=== PATIENT | male | born 1990 | race Caucasian/White ===

== ENCOUNTER 2024-11-15 12:51 | Observation (INO) | payer OTHER ==
[2024-11-15] MEDS ORDERED: Sodium Chloride 0.9% 1000 ML 1,000 ML ONE (13:33)
[2024-11-15] MEDS: Sodium Chloride 0.9% 1000 ML 1,000 ML IV SCH ×2 (13:35→18:31)
--- NOTE | 2024-11-15 13:36 | XRAY ---
Indication: Status post fall with left head injury/laceration. Multiple contiguous axial images obtained through the head without contrast. Comparison: None Normal appearing brain parenchyma, ventricles, and bony calvarium. Visualized paranasal sinuses and mastoid air cells are clear. Impression: Normal CT head without contrast exam.
[2024-11-15 13:42] LABS: Absolute Neutrophil Ct (ANC) 5.58 x10^3/uL (1.78-5.38); BASOPHIL % 0.3 % (0.2-1.2); Basophil (Absolute #) 0.02 x10^3/uL (0.01-0.08); Eosinophil % 2.2 % (0.8-7.0); Eosinophil (Absolute #) 0.17 x10^3/uL (0.04-0.54); Hematocrit 43.2 % (40.1-51.0); Hemoglobin 15.3 g/dL (13.7-17.5); IMMATURE GRAN # 0.03 x10^3u/L (0.001-0.031); IMMATURE GRAN % 0.4 % (0.001-0.429); Lymphocyte (Absolute #) 1.47 x10^3/uL (1.32-3.57); Lymphocytes % 19.2 % (21.8-53.1); Mean Cell Volume 84.4 fL (79.0-92.2); Mean Corpuscular Hemoglobin 29.9 pg (25.7-32.2); Mean Corpuscular Hgb Concent. 35.4 g/dL (32.3-36.5); Mean Platelet Volume 11.1 fL (9.4-12.4); Monocytes % 5.2 % (5.3-12.2); NUCLEATED RBC # 0.02 x10^3u/L (0.00-0.012); NUCLEATED RBC % 0.3 % (0.00-0.2); Neutrophil % 72.7 % (34.0-67.9); Platelet Count 188 x10^3/uL (163-337); Red Blood Count 5.12 x10^6/uL (4.63-6.08); Red Cell Distribution Width 11.5 % (11.6-14.4); White Blood Count 7.7 x10^3/uL (4.23-9.07)
--- NOTE | 2024-11-15 13:44 | XRAY ---
Indication: Status post fall with left head injury/laceration. Multiple contiguous axial images obtained through cervical spine with cervical collar in situ. Sagittal and coronal reformatted images obtained. Comparison: Cervical radiograph same day. Again C5-C6 fusion with intact anterior hardware and intervertebral spacer. Cervical lordotic reversal presumed positional due to cervical collar. Right transverse process C1 demonstrates 1 cm well-circumscribed ossification felt to be developmental/normal variant. Otherwise normal appearing bones, dictation, and noncontrasted soft tissues appear lung apices clear. Impression: Cervical lordotic reversal favored to be positional. Stable C5-C6 fusion. Negative acute fracture/subluxation.
--- NOTE | 2024-11-15 13:49 | ERPHSYRPT ---
- History of Present Illness Time Seen by Provider: 11/15/24 12:55 Source: patient Exam Limitations: no limitations Patient Subjective Stated Complaint: Pt was in radiology having cervical xrays and when doing an extension of his neck he felt a tightness in his neck started getting tunnel vision tried to sit and had a syncopal episode causing a fall. Cervical xrays were for routine follow up from having cervical surgery pt reports "ACDF" on 07/05/24. When falling it is said he hit left side of head on a foot stool. The rapid response team reported blood sugar of 89. Triage Nursing Assessment: Pt brought to ED from radiology via wheelchair. Pt pale, diaphoretic, cool. Alert and oriented x3. Respirations easy/nonlabored. Approx 3cm laceration behind left ear. Complaints of left hip pain, no bruising/lacerations. Pt denies any numbness/tingling left lower extremity. Complains of some neck tightness. No obvious deformities. C-collar in place. Physician History: Patient is a 34-year-old male presents to the emergency department via wheelchair from radiology for evaluation post syncope. Patient was in radiology to obtain cervical x-rays. Patient had anterior cervical discectomy and fusion on 07/05/2024. After obtaining his radiological evaluation patient reportedly "passed out". Patient hit the floor. The left side of his head reportedly hit a footstool causing a 3 cm laceration behind his ear. Patient has poor recollection of the incident. Code rapid was called. Patient's blood glucose at that time was 89. Cervical collar placed while in the radiology department. Upon arrival to our ED patient was alert and oriented x 3. However he looked a little pale and dusky. Slightly diaphoretic. Otherwise in no distress. Patient complains of some left gluteal hip soreness. Patient able to stand up without any discomfort. Patient feels well at this time. No active pain. Patient voices no other complaints or concerns at this time. Portions of this note were created with voice recognition technology. There may be grammatical, spelling, punctuation or sound alike errors Timing/Duration: today Severity: moderate Modifying Factors: Improves With: nothing Associated Symptoms: denies symptoms Allergies/Adverse Reactions: No Known Drug Allergies Allergy (Unverified 11/15/24 12:53) Home Medications: Collagen/Biotin/Ascorbic Acid [Collagen 1500 Plus C Capsule] 1 tab PO DAILY 11/15/24 [History] Multivitamin [Flintstones with Extra C] 1 tab PO DAILY 11/15/24 [History] Hx Tetanus, Diphtheria Vaccination/Date Given: Yes Hx Influenza Vaccination/Date Given: Yes Travel Risk - International Travel Have you traveled outside of the country in past 3 weeks: No - Emerging Infectious Disease Are you exhibiting symptoms associated with any current EIDs: No - Review of Systems Constitutional: No Symptoms, No Fever, No Chills Eyes: No Symptoms Ears, Nose, & Throat: No Symptoms Respiratory: No Symptoms, No Cough, No Dyspnea Cardiac: No Symptoms, No Chest Pain, No Edema, No Syncope Abdominal/Gastrointestinal: No Symptoms, No Abdominal Pain, No Nausea, No Vomiting, No Diarrhea Genitourinary Symptoms: No Symptoms, No Dysuria Musculoskeletal: No Symptoms, No Back Pain, No Neck Pain Skin: No Symptoms, No Rash Neurological: No Symptoms, No Dizziness, No Focal Weakness, No Sensory Changes Psychological: No Symptoms Endocrine: No Symptoms Hematologic/Lymphatic: No Symptoms Immunological/Allergic: No Symptoms All Other Systems: Reviewed and Negative - Past Medical History Neurological History: No Pertinent History Cardiac History: No Pertinent History Respiratory History: Sleep Apnea Endocrine Medical History: No Pertinent History Musculoskeletal History: No Pertinent History - Past Surgical History Past Surgical History: Yes Musculoskeletal: Orthopedic Surgery Other Surgical History: left knee meniscus - Social History Smoking Status: Never smoker Exposure to second hand smoke: No Drug Use: none - Social Determinants of Health Will the patient participate in the screening: Declined to provide - Nursing Vital Signs Nursing Vital Signs: Initial Vital Signs Temperature 97.4 F 11/15/24 12:52 Pulse Rate 79 11/15/24 12:52 Respiratory Rate 16 11/15/24 12:52 Blood Pressure 122/68 11/15/24 12:52 O2 Sat by Pulse Oximetry 98 11/15/24 12:52 Pain Scale Pain Intensity 2 - Physical Exam General Appearance: no apparent distress, alert Eye Exam: PERRL/EOMI, eyes nml inspection Ears, Nose, Throat Exam: normal ENT inspection, TMs normal, pharynx normal, moist mucous membranes Neck Exam: normal inspection, non-tender, supple, full range of motion Respiratory Exam: normal breath sounds, lungs clear, No respiratory distress Cardiovascular Exam: regular rate/rhythm, normal heart sounds, normal peripheral pulses Gastrointestinal/Abdomen Exam: soft, normal bowel sounds, No tenderness, No mass Back Exam: normal inspection, normal range of motion, No CVA tenderness, No ve rtebral tenderness Extremity Exam: normal inspection, normal range of motion, pelvis stable Neurologic Exam: alert, oriented x 3, cooperative, normal mood/affect, nml cerebellar function, nml station & gait, sensation nml, No motor deficits Skin Exam: normal color, warm, dry, other (Superficial 3 cm laceration posterior aspect left ear), No rash Lymphatic Exam: No adenopathy SpO2 Interpretation: normal SpO2: 95 O2 Delivery: Room Air Procedures - Laceration/Wound Repair Left Head Time of Procedure: 14:20 Wound Location: Left (Laceration left posterior ear) Wound Length (cm): 3 Wound's Depth, Shape: superficial Wound Explored: clean Irrigated: Yes Hibiclens Prep: Yes Anesthesia: 1% Lidocaine Volume Anesthetic (ccs): 4 Wound Debrided: No debridement indicated Wound Repaired With: sutures Suture Size/Type: 5-0, ethilon Number of Sutures: 5 Layer Closure?: No Sterile Dressing Applied?: Yes Splint Applied?: No Sling Applied?: No Progress: 11/15/24 14:33 No intra or postprocedural complications. Patient tolerated procedure well. - Course Nursing assessment & vital signs reviewed: Yes EKG Interpreted by Me: RATE (76), Sinus Rhythm, NORMAL AXIS, NORMAL INTERVALS, NORMAL QRS - CT Exams Head CT Interpretation: Tele-radiologist Report (Normal CT head without contrast) Cervical Spine CT Interpretation: Tele-radiologist Report (No acute fracture or dislocation) Ordered Tests: Active Orders 24 hr Category Date Time Status Child Guidance Counselor STAT Care 11/15/24 13:01 Active EKG-ER Only STAT Care 11/15/24 13:00 Active IV Insertion STAT Care 11/15/24 13:00 Active Pulse Oximetry (ED) STAT Care 11/15/24 13:00 Active CERVICAL SPINE WO CONTRAST [CT] Stat Exams 11/15/24 12:59 Completed HEAD WITHOUT CONTRAST [CT] Stat Exams 11/15/24 12:59 Completed CBC W DIFF Stat Lab 11/15/24 13:32 Completed CMP Stat Lab 11/15/24 13:32 Completed ETHYL ALCOHOL Stat Lab 11/15/24 13:32 Completed TROPONIN Q4H Lab 11/15/24 13:32 Completed TROPONIN Q4H Lab 11/15/24 17:15 Ordered TROPONIN Q4H Lab 11/15/24 21:15 Ordered UA W/RFX UR CULTURE Stat Lab 11/15/24 13:01 Ordered Urine Triage Profile Stat Lab 11/15/24 13:01 Ordered Transfer Order Routine Transfer 11/15/24 Ordered Medication Summary Generic Name Dose Route Start Last Admin Trade Name Freq PRN Reason Stop Dose Admin Sodium Chloride 1,000 mls @ 100 mls/hr 11/15/24 13:00 11/15/24 13:35 Sodium Chloride 0.9% 1000 Ml IV 12/15/24 12:59 100 mls/hr .Q10H MERYL Administration Discontinued Medications Generic Name Dose Route Start Last Admin Trade Name Freq PRN Reason Stop Dose Admin Diphtheria/Tetanus/Acell Pertussis 0.5 ml 11/15/24 14:32 11/15/24 15:03 Tdap --Diph,Pertuss(Acell),Tet Vac/Pf 0.5 Ml Vial IM 11/15/24 14:33 0.5 ml .ONCE ONE Administration Diphtheria/Tetanus/Acell Pertussis Confirm 11/15/24 14:50 Tdap --Diph,Pertuss(Acell),Tet Vac/Pf 0.5 Ml Vial Administered 11/15/24 14:51 Dose 0.5 ml IM .STK-MED ONE Lidocaine HCl Confirm 11/15/24 14:17 Lidocaine Hcl 1% 20 Ml Mdv 20 Ml Ml Administered 11/15/24 14:18 Dose 1 ml .ROUTE .STK-MED ONE Lidocaine HCl 10 ml 11/15/24 14:49 11/15/24 14:54 Lidocaine Hcl 1% 20 Ml Mdv 20 Ml Ml IJ 11/15/24 14:50 4 ml STAT ONE Administration Lab/Rad Data: Laboratory Result Diagrams 11/15/24 13:32 11/15/24 13:32 Laboratory Results 11/15/24 11/15/24 11/15/24 Range/Units 13:32 13:32 13:32 WBC 7.7 (4.23-9.07) x10^3/uL RBC 5.12 (4.63-6.08) x10^6/uL Hgb 15.3 (13.7-17.5) g/dL Hct 43.2 (40.1-51.0) % MCV 84.4 (79.0-92.2) fL MCH 29.9 (25.7-32.2) pg MCHC 35.4 (32.3-36.5) g/dL RDW 11.5 L (11.6-14.4) % Plt Count 188 (163-337) x10^3/uL MPV 11.1 (9.4-12.4) fL Gran % 72.7 H (34.0-67.9) % Immature Gran % (Auto) 0.4 (0.001-0.429) % Nucleat RBC Rel Count 0.3 H (0.00-0.2) % Eos # (Auto) 0.17 (0.04-0.54) x10^3/uL Immature Gran # (Auto) 0.03 (0.001-0.031) x10^3u/L Absolute Lymphs (auto) 1.47 (1.32-3.57) x10^3/uL Absolute Monos (auto) 0.40 (0.30-0.82) x10^3/uL Absolute Nucleated RBC 0.02 H (0.00-0.012) x10^3u/L Lymphocytes % 19.2 L (21.8-53.1) % Monocytes % 5.2 L (5.3-12.2) % Eosinophils % 2.2 (0.8-7.0) % Basophils % 0.3 (0.2-1.2) % Absolute Granulocytes 5.58 H (1.78-5.38) x10^3/uL Basophils # 0.02 (0.01-0.08) x10^3/uL Sodium 141 (135-145) mmol/L Potassium 3.7 (3.5-5.1) mmol/L Chloride 104 (98-107) mmol/L Carbon Dioxide 26 (22-30) mmol/L Anion Gap 15.0 (5-15) MEQ/L BUN 17 (9-20) mg/dL Creatinine 1.13 (0.66-1.25) mg/dL Estimated GFR 86.4 ML/MIN Glucose 103 (74-106) mg/dL Calcium 9.1 (8.4-10.2) mg/dL Total Bilirubin 0.80 (0.2-1.3) mg/dL AST 27 (17-59) U/L ALT 22 (0-50) U/L Alkaline Phosphatase 53 (38-126) U/L Troponin I < 0.012 (0.000-0.033) ng/mL Serum Total Protein 6.9 (6.3-8.2) g/dL Albumin 4.5 (3.5-5.0) g/dL Ethyl Alcohol < 10 (0-10) mg/dL - Progress Progress: improved Progress Note: 34-year-old male presents to our ED for syncope and collapse. Patient suffered a 3 cm laceration posterior aspect left ear. After his syncopal episode patient experienced approximately 4 near syncopal episodes. Patient became pale diaphoretic. No chest pain. The laceration behind the ear was repaired. CT head cervical spine negative for acute pathology. Patient will be admitted for syncope collapse and recurrent near syncopal episodes. Case discussed with hospitalist Dr. William who accepts admission to observation. Patient accepted by Dr. William at 3:11 PM Portions of this note were created with voice recognition technology. There may be grammatical, spelling, punctuation or sound alike errors Complexity of problem addressed is moderate acute complicated. No critical care time. Complexity of data reviewed and analyzed as extensive. Test ordered test reviewed results analyzed and correlated clinically with history and physical exam. Management discussed with hospitalist accepts admission to observation. Risk of complication and a risk of morbidity/mortality of patient management is high. Patient requires hospitalization for further evaluation and treatment of syncope and recurrent near syncopal episodes. Vital stable. Time spent admit patient approximately 15 minutes. Plan of care established for shared decision making. No social determinants of health present to impede follow-up. Portions of this note were created with voice recognition technology. There may be grammatical, spelling, punctuation or sound alike errors 11/15/24 15:11 Counseled pt/family regarding: lab results, diagnosis, rad results - Departure Departure Disposition: Observation Clinical Impression: Syncope and collapse, Recurrent near syncopal episodes, Laceration Condition: Stable Critical Care Time: No Referrals: NANDA DIA NP [Primary Care Provider] - Follow up/PCP as directed
[2024-11-15 13:56] LABS: ALBUMIN 4.5 g/dL (3.5-5.0); ALKALINE PHOSPHATASE 53 U/L (38-126); BLOOD UREA NITROGEN 17 mg/dL (9-20); CHLORIDE 104 mmol/L (98-107); Calcium 9.1 mg/dL (8.4-10.2); Carbon Dioxide 26 mmol/L (22-30); Creatinine 1 1.13 mg/dL (0.66-1.25); EST GLOMERULAR FILTRATION RATE 86.4 ML/MIN; ETHYL ALCOHOL < 10 mg/dL (0-10); Glucose 103 mg/dL (74-106); Potassium 3.7 mmol/L (3.5-5.1); SGOT/AST 27 U/L (17-59); SGPT/ALT 22 U/L (0-50); SODIUM 141 mmol/L (135-145); Total Protein 6.9 g/dL (6.3-8.2)
[2024-11-15] MEDS ORDERED: XYLOCAINE 1% HCL 20 ML MDV ONE (14:17)
[2024-11-15] MEDS ORDERED: Adacel Vial IM ONE (14:50)
[2024-11-15] MEDS: XYLOCAINE 1% HCL 20 ML MDV IJ ONE (14:54)
[2024-11-15] MEDS: Adacel Vial IM ONE (15:03)
--- NOTE | 2024-11-15 16:33 | PCM.HP ---
History of Present Illness - Chief Complaint Chief Complaint: Syncope and collapse Date: 11/15/24 History of Present Illness: Mr. Webster is a 34-year-old male with a past medical history of sleep apnea and a C5-C6 cervical fusion who presented to the emergency department via wheelchair from the radiology department following a syncopal episode. He had been in radiology for cervical spine x-rays, having undergone an anterior cervical discectomy and fusion on 07/05/2024, performed by Dr. Alvaro Mejia at [facility]. After the imaging was completed, the patient reportedly lost consciousness and fell to the floor. During the fall, the left side of his head struck a footstool, resulting in a 3 cm laceration behind his left ear. He has poor recollection of the event. A rapid response was called, and his blood glucose was found to be 89 mg/dL. A cervical collar was placed in the radiology department for precaution. Upon arrival to the ED, Mr. Webster was alert and oriented to person, place, and time. He appeared slightly pale and dusky, mildly diaphoretic, but otherwise in no acute distress. He complained of soreness in the left gluteal/hip area but denied any active pain and was able to stand without discomfort. He stated that he currently feels well and had no additional complaints. A CT scan of the head was negative for acute findings. CT of the cervical spine showed reversal of cervical lordosis, likely positional in nature, with a stable C5-C6 fusion and no evidence of acute fracture or subluxation. In the ED, the patient received IV fluids and a Tdap vaccination. He was treated for the laceration with five stitches by the ED provider. Urinalysis and urine drug screen are pending. Upon further discussion, the patient mentioned he had not consumed any water throughout the day and follows an intermittent fasting regimen. Although he reported discomfort in the left gluteal region following the fall, he refused an X-ray for further evaluation, attributing the soreness to muscle strain. - Review of Systems Constitutional: No Fever, No Chills Eyes: No Symptoms Ears, Nose, & Throat: No Symptoms Respiratory: No Cough, No Short Of Breath Cardiac: No Chest Pain, No Edema, No Syncope Abdominal/Gastrointestinal: No Abdominal Pain, No Nausea, No Vomiting, No Diarrhea Genitourinary Symptoms: No Dysuria Musculoskeletal: Other (left gluteal pain), No Back Pain, No Neck Pain Skin: No Rash Neurological: No Dizziness, No Focal Weakness, No Sensory Changes Psychological: No Symptoms Endocrine: No Symptoms Hematologic/Lymphatic: No Symptoms Immunological/Allergic: No Symptoms Medications & Allergies Home Medications: Home Medication List Collagen/Biotin/Ascorbic Acid [Collagen 1500 Plus C Capsule] 1 tab PO DAILY 11/15/24 [History Confirmed 11/15/24] Multivitamin [Flintstones with Extra C] 1 tab PO DAILY 11/15/24 [History Confirmed 11/15/24] Allergies/Adverse Reactions: Allergies Allergy/AdvReac Type Severity Reaction Status Date / Time No Known Drug Allergies Allergy Unverified 11/15/24 12:53 - Past Medical History Past Medical History: Yes Neurological History: No Pertinent History ENT History: No Pertinent History Cardiac History: No Pertinent History Respiratory History: Sleep Apnea Endocrine Medical History: No Pertinent History Musculoskelatal History: No Pertinent History GI Medical History: No Pertinent History History: No Pertinent History Pyscho-Social History: No Pertinent History Male Reproductive Disorders: No Pertinent History Comment: PSH: NONE LISTED, left wrist fracture - Past Surgical History Past Surgical History: Yes Neuro Surgical History: No Pertinent History Cardiac History: No Pertinent History Respiratory Surgery: No Pertinent History GI Surgical History: No Pertinent History Genitourinary Surgical Hx: No Pertinent History Musculskeletal Surgical Hx: Orthopedic Surgery Male Surgical History: No Pertinent History Other Surgical History: left knee meniscus, neck surgery 2023, Significant Family History: no pertinent family hx - Social History Smoking Status: Never smoker Exposure to second hand smoke: No Alcohol: Rarely Drug Use: none - Social Determinants of Health Will the patient participate in the screening: Yes Do you worry about a steady place to live?: Yes Do you have any problems with any of the following?: No known problems In the past 12 months,have you had to go without utilities?: No Have you or anyone in your house had to go without enough: No Transportation Issues: No Has anyone in your support network made you feel unsafe?: No Does the patient want assistance with any of the above?: No - Physical Exam Vital Signs: Vital Signs - 24 hr Temp Pulse Resp BP BP Pulse Ox 11/15/24 16:09 97.4 F 79 17 122/68 97 11/15/24 15:22 79 17 135/78 97 11/15/24 15:20 79 16 96 11/15/24 15:16 95 11/15/24 15:10 74 13 97 11/15/24 15:09 76 15 11/15/24 13:41 95 11/15/24 13:00 73 19 129/81 98 11/15/24 12:52 97.4 F 79 16 122/68 98 General Appearance: no apparent distress, alert Neurologic Exam: alert, oriented x 3, cooperative, normal mood/affect, nml cerebellar function, nml station & gait, sensation nml, No motor deficits Eye Exam: PERRL/EOMI, eyes nml inspection Ears, Nose, Throat Exam: normal ENT inspection, TMs normal, pharynx normal, moist mucous membranes Neck Exam: normal inspection, non-tender, supple, full range of motion Respiratory Exam: normal breath sounds, lungs clear, No respiratory distress Cardiovascular Exam: regular rate/rhythm, normal heart sounds, normal peripheral pulses Gastrointestinal/Abdomen Exam: soft, normal bowel sounds, No tenderness, No mass Back Exam: normal inspection, normal range of motion, No CVA tenderness, No vertebral tenderness Extremity Exam: normal inspection, normal range of motion, pelvis stable Skin Exam: normal color, warm, dry, No rash Lymphatic Exam: No adenopathy Results - Labs Lab/Micro Results: Lab Results-Last 24 Hours 11/15/24 11/15/24 11/15/24 Range/Units 13:32 13:32 13:32 WBC 7.7 (4.23-9.07) x10^3/uL RBC 5.12 (4.63-6.08) x10^6/uL Hgb 15.3 (13.7-17.5) g/dL Hct 43.2 (40.1-51.0) % MCV 84.4 (79.0-92.2) fL MCH 29.9 (25.7-32.2) pg MCHC 35.4 (32.3-36.5) g/dL RDW 11.5 L (11.6-14.4) % Plt Count 188 (163-337) x10^3/uL MPV 11.1 (9.4-12.4) fL Gran % 72.7 H (34.0-67.9) % Immature Gran % (Auto) 0.4 (0.001-0.429) % Nucleat RBC Rel Count 0.3 H (0.00-0.2) % Eos # (Auto) 0.17 (0.04-0.54) x10^3/uL Immature Gran # (Auto) 0.03 (0.001-0.031) x10^3u/L Absolute Lymphs (auto) 1.47 (1.32-3.57) x10^3/uL Absolute Monos (auto) 0.40 (0.30-0.82) x10^3/uL Absolute Nucleated RBC 0.02 H (0.00-0.012) x10^3u/L Lymphocytes % 19.2 L (21.8-53.1) % Monocytes % 5.2 L (5.3-12.2) % Eosinophils % 2.2 (0.8-7.0) % Basophils % 0.3 (0.2-1.2) % Absolute Granulocytes 5.58 H (1.78-5.38) x10^3/uL Basophils # 0.02 (0.01-0.08) x10^3/uL Sodium 141 (135-145) mmol/L Potassium 3.7 (3.5-5.1) mmol/L Chloride 104 (98-107) mmol/L Carbon Dioxide 26 (22-30) mmol/L Anion Gap 15.0 (5-15) MEQ/L BUN 17 (9-20) mg/dL Creatinine 1.13 (0.66-1.25) mg/dL Estimated GFR 86.4 ML/MIN Glucose 103 (74-106) mg/dL Calcium 9.1 (8.4-10.2) mg/dL Total Bilirubin 0.80 (0.2-1.3) mg/dL AST 27 (17-59) U/L ALT 22 (0-50) U/L Alkaline Phosphatase 53 (38-126) U/L Troponin I < 0.012 (0.000-0.033) ng/mL Serum Total Protein 6.9 (6.3-8.2) g/dL Albumin 4.5 (3.5-5.0) g/dL Ethyl Alcohol < 10 (0-10) mg/dL - Radiology Impressions Radiology Exams & Impressions: Radiology Procedures Category Date Time Status CERVICAL SPINE WO CONTRAST [CT] Stat Exams 11/15/24 12:59 Completed HEAD WITHOUT CONTRAST [CT] Stat Exams 11/15/24 12:59 Completed Assessment/Plan (1) Syncope and collapse Current Visit: Yes Status: Acute Assessment & Plan: - CT head negative for acute concern - Impression: Cervical lordotic reversal favored to be positional. Stable C5-C6 fusion. Negative acute fracture/subluxation. - Tele - CBC, CMP reviewed - Echo tomorrow - Trend trops x3 - IVF - Orthostats in AM - Posible vasovagal epidode. - TSH, Mg + in AM Code(s): R55 - SYNCOPE AND COLLAPSE (2) Laceration Current Visit: Yes Status: Acute Assessment & Plan: - 3 cm laceration behind his left ear after fall in radiology today. - ICE PRN - Tylenol PRN - + stitches- will need OP f/u for removal Code(s): [id number] - (3) Gluteal pain Current Visit: Yes Status: Acute Assessment & Plan: - Left side - post fall - Tylenol PRN - ICE pack PRN Code(s): M79.18 - MYAL[place]IA, OTHER SITE (4) Sleep apnea Current Visit: Yes Status: Chronic Assessment & Plan: - RT for cpap set up. VTE: SCD's Next of KIN: Spouse D/C plan: tomorrow Code status: Full Code(s): G47.30 - SLEEP APNEA, UNSPECIFIED Telemedicine Encounter - Telemedicine Encounter Telemedicine Encounter: "The entirety of this encounter was performed via Telemedicine" This visit was performed using real-time audio and video connection between my location and thepatients locationwith the assistance of a surrogateat the patients location. Written or verbal consent was obtained from the patient/guardian to perform this visit usingnchrRoundratelemedicine technology. Any patient questions regarding the telemedicine interaction were answered.
[2024-11-15] MEDS ORDERED: MEDICATION INTERVENTION MC SCH (17:30)
[2024-11-15] MEDS: TYLENOL 325 MG PO PRN (18:03)
[2024-11-15 23:41] LABS: Appearance Clear (Clear); Bacteria None Seen /HPF (None Seen); Bilirubin Negative (Negative); Blood Negative (Negative); Epithelial Cells None Seen /HPF (None Seen); Glucose, Urine Negative (Negative); Hyaline Casts NONE SEEN /LPF (0-2); Ketones Trace (Negative); Leukocyte Esterase Negative (Negative); Nitrite Negative (Negative); Protein,Urine Dip Negative (Negative); RBC 0-2 /HPF (0-5); Specific Gravity >=1.030 (1.005-1.030)
[2024-11-15 23:52] LABS: Amphetamine,Urine NEGATIVE (NEGATIVE); Barbiturate,Urine NEGATIVE (NEGATIVE); Benzodiazepine,Urine NEGATIVE (NEGATIVE); Cocaine,Urine NEGATIVE (NEGATIVE); Methadone,Urine NEGATIVE (NEGATIVE); Opiate,Urine NEGATIVE (NEGATIVE); PCP,Urine NEGATIVE (NEGATIVE); THC,Urine NEGATIVE (NEGATIVE)
[2024-11-16 05:03] LABS: Hematocrit 43.4 % (40.1-51.0); Mean Cell Volume 86.3 fL (79.0-92.2); Mean Corpuscular Hemoglobin 29.8 pg (25.7-32.2); Mean Corpuscular Hgb Concent. 34.6 g/dL (32.3-36.5); Mean Platelet Volume 10.7 fL (9.4-12.4); Platelet Count 171 x10^3/uL (163-337); Red Blood Count 5.03 x10^6/uL (4.63-6.08); Red Cell Distribution Width 11.9 % (11.6-14.4); White Blood Count 5.5 x10^3/uL (4.23-9.07)
[2024-11-16 05:05] VITALS: O2SAT 98
[2024-11-16 05:30] LABS: ALBUMIN 4.1 g/dL (3.5-5.0); ANION GAP 12.7 MEQ/L (5-15); BILIRUBIN,TOTAL 0.8 mg/dL (0.2-1.3); Calcium 8.7 mg/dL (8.4-10.2); Creatinine 1 1.08 mg/dL (0.66-1.25); EST GLOMERULAR FILTRATION RATE 91.2 ML/MIN; MAGNESIUM 2.1 mg/dL (1.6-2.3); Potassium 3.7 mmol/L (3.5-5.1); Total Protein 6.7 g/dL (6.3-8.2)
[2024-11-16 07:33] VITALS: BP 145/81; PULSE 66; RESP 16; TEMP 98.1
[2024-11-16] MEDS ORDERED: MORPHINE SULFATE 2 MG INJ IV PRN (08:44)
--- NOTE | 2024-11-16 09:49 | PCM.DS ---
Discharge Summary Date of Admission: 11/15/24 15:55 Date of Discharge: 11/16/24 Admitting Physician: MACRINA RUIZ MD Primary Care Provider: NANDA DIA Allergies Allergies No Known Drug Allergies Allergy (Unverified 11/15/24 12:53) Hospital Summary - Hospital Course Hospital Course: 11/15/24 Mr. Webster is a 34-year-old male with a past medical history of sleep apnea and a C5-C6 cervical fusion who presented to the emergency department via wheelchair from the radiology department following a syncopal episode. He had been in radiology for cervical spine x-rays, having undergone an anterior cervical discectomy and fusion on 07/05/2024, performed by Dr. Alvaro Mejia at [facility]. After the imaging was completed, the patient reportedly lost c onsciousness and fell to the floor. During the fall, the left side of his head struck a footstool, resulting in a 3 cm laceration behind his left ear. He has poor recollection of the event. A rapid response was called, and his blood glucose was found to be 89 mg/dL. A cervical collar was placed in the radiology department for precaution. Upon arrival to the ED, Mr. Webster was alert and oriented to person, place, and time. He appeared slightly pale and dusky, mildly diaphoretic, but otherwise in no acute distress. He complained of soreness in the left gluteal/hip area but denied any active pain and was able to stand without discomfort. He stated that he currently feels well and had no additional complaints. A CT scan of the head was negative for acute findings. CT of the cervical spine showed reversal of cervical lordosis, likely positional in nature, with a stable C5-C6 fusion and no evidence of acute fracture or subluxation. In the ED, the patient received IV fluids and a Tdap vaccination. He was treated for the laceration with five stitches by the ED provider. Urinalysis and urine drug screen are pending. Upon further discussion, the patient mentioned he had not consumed any water throughout the day and follows an intermittent fasting regimen. Although he reported discomfort in the left gluteal region following the fall, he refused an X-ray for further evaluation, attributing the soreness to muscle strain. 11/16/24 Pt resting in bed. He states he has been up and walking around in room without concerns. He is c/o pain behind left ear where he hit and has stitches. Discussed may use Tylenol and ice pack. Labs reviewed with pt and non- concerning. Pt may d/c after echo complete. He will need to f/u with PCP to review results as it can take 48 hours to be read and he would like to d/c today. He denies any further concerns at this time. - Vitals & Intake/Output Vital Signs: Vital Signs Temperature 98.1 F 11/16/24 07:32 Pulse Rate 66 11/16/24 07:32 Respiratory Rate 16 11/16/24 07:32 Blood Pressure 145/81 11/16/24 07:32 O2 Sat by Pulse Oximetry 98 11/16/24 07:32 Intake & Output: Intake & Output 11/13/24 11/14/24 11/15/24 11/16/24 11:59 11:59 11:59 11:59 Intake Total 2907 Balance 2907 Weight 90.718 kg - Lab Result Diagrams: 11/16/24 04:52 11/16/24 04:52 Lab Results-Last 24 Hrs: Lab Results-Last 24 Hours 11/15/24 11/15/24 11/15/24 Range/Units 13:32 13:32 13:32 WBC 7.7 (4.23-9.07) x10^3/uL RBC 5.12 (4.63-6.08) x10^6/uL Hgb 15.3 (13.7-17.5) g/dL Hct 43.2 (40.1-51.0) % MCV 84.4 (79.0-92.2) fL MCH 29.9 (25.7-32.2) pg MCHC 35.4 (32.3-36.5) g/dL RDW 11.5 L (11.6-14.4) % Plt Count 188 (163-337) x10^3/uL MPV 11.1 (9.4-12.4) fL Gran % 72.7 H (34.0-67.9) % Immature Gran % (Auto) 0.4 (0.001-0.429) % Nucleat RBC Rel Count 0.3 H (0.00-0.2) % Eos # (Auto) 0.17 (0.04-0.54) x10^3/uL Immature Gran # (Auto) 0.03 (0.001-0.031) x10^3u/L Absolute Lymphs (auto) 1.47 (1.32-3.57) x10^3/uL Absolute Monos (auto) 0.40 (0.30-0.82) x10^3/uL Absolute Nucleated RBC 0.02 H (0.00-0.012) x10^3u/L Lymphocytes % 19.2 L (21.8-53.1) % Monocytes % 5.2 L (5.3-12.2) % Eosinophils % 2.2 (0.8-7.0) % Basophils % 0.3 (0.2-1.2) % Absolute Granulocytes 5.58 H (1.78-5.38) x10^3/uL Basophils # 0.02 (0.01-0.08) x10^3/uL Sodium 141 (135-145) mmol/L Potassium 3.7 (3.5-5.1) mmol/L Chloride 104 (98-107) mmol/L Carbon Dioxide 26 (22-30) mmol/L Anion Gap 15.0 (5-15) MEQ/L BUN 17 (9-20) mg/dL Creatinine 1.13 (0.66-1.25) mg/dL Estimated GFR 86.4 ML/MIN Glucose 103 (74-106) mg/dL Calcium 9.1 (8.4-10.2) mg/dL Magnesium (1.6-2.3) mg/dL Total Bilirubin 0.80 (0.2-1.3) mg/dL AST 27 (17-59) U/L ALT 22 (0-50) U/L Alkaline Phosphatase 53 (38-126) U/L Troponin I < 0.012 (0.000-0.033) ng/mL Serum Total Protein 6.9 (6.3-8.2) g/dL Albumin 4.5 (3.5-5.0) g/dL TSH 3rd Generation (0.470-4.680) mIU/L Urine Color (Yellow) Urine Appearance (Clear) Urine pH (4.6-8.0) Ur Specific Pepin (1.005-1.030) Urine Protein (Negative) Urine Glucose (UA) (Negative) mg/dL Urine Ketones (Negative) Urine Blood (Negative) Urine Nitrite (Negative) Urine Bilirubin (Negative) Urine Urobilinogen (0.2) mg/dL Ur Leukocyte Esterase (Negative) U Hyaline Cast (Auto) (0-2) /LPF Urine Microscopic RBC (0-5) /HPF Urine Microscopic WBC (0-5) /HPF Ur Epithelial Cells (None Seen) /HPF Urine Bacteria (None Seen) /HPF Urine Culture Reflexed (NO) Urine Opiates Level (NEGATIVE) Ur Methadone (NEGATIVE) Urine Barbiturates (NEGATIVE) Ur Phencyclidine (PCP) (NEGATIVE) Urine Amphetamine (NEGATIVE) U Benzodiazepine Level (NEGATIVE) Urine Cocaine (NEGATIVE) Urine Marijuana (THC) (NEGATIVE) Ethyl Alcohol < 10 (0-10) mg/dL 11/15/24 11/15/24 11/15/24 Range/Units 16:55 23:20 23:30 WBC (4.23-9.07) x10^3/uL RBC (4.63-6.08) x10^6/uL Hgb (13.7-17.5) g/dL Hct (40.1-51.0) % MCV (79.0-92.2) fL MCH (25.7-32.2) pg MCHC (32.3-36.5) g/dL RDW (11.6-14.4) % Plt Count (163-337) x10^3/uL MPV (9.4-12.4) fL Gran % (34.0-67.9) % Immature Gran % (Auto) (0.001-0.429) % Nucleat RBC Rel Count (0.00-0.2) % Eos # (Auto) (0.04-0.54) x10^3/uL Immature Gran # (Auto) (0.001-0.031) x10^3u/L Absolute Lymphs (auto) (1.32-3.57) x10^3/uL Absolute Monos (auto) (0.30-0.82) x10^3/uL Absolute Nucleated RBC (0.00-0.012) x10^3u/L Lymphocytes % (21.8-53.1) % Monocytes % (5.3-12.2) % Eosinophils % (0.8-7.0) % Basophils % (0.2-1.2) % Absolute Granulocytes (1.78-5.38) x10^3/uL Basophils # (0.01-0.08) x10^3/uL Sodium (135-145) mmol/L Potassium (3.5-5.1) mmol/L Chloride (98-107) mmol/L Carbon Dioxide (22-30) mmol/L Anion Gap (5-15) MEQ/L BUN (9-20) mg/dL Creatinine (0.66-1.25) mg/dL Estimated GFR ML/MIN Glucose (74-106) mg/dL Calcium (8.4-10.2) mg/dL Magnesium (1.6-2.3) mg/dL Total Bilirubin (0.2-1.3) mg/dL AST (17-59) U/L ALT (0-50) U/L Alkaline Phosphatase (38-126) U/L Troponin I < 0.012 (0.000-0.033) ng/mL Serum Total Protein (6.3-8.2) g/dL Albumin (3.5-5.0) g/dL TSH 3rd Generation (0.470-4.680) mIU/L Urine Color Yellow (Yellow) Urine Appearance Clear (Clear) Urine pH 6.0 (4.6-8.0) Ur Specific Pepin >=1.030 A (1.005-1.030) Urine Protein Negative (Negative) Urine Glucose (UA) Negative (Negative) mg/dL Urine Ketones Trace A (Negative) Urine Blood Negative (Negative) Urine Nitrite Negative (Negative) Urine Bilirubin Negative (Negative) Urine Urobilinogen 1.0 A (0.2) mg/dL Ur Leukocyte Esterase Negative (Negative) U Hyaline Cast (Auto) NONE SEEN (0-2) /LPF Urine Microscopic RBC 0-2 (0-5) /HPF Urine Microscopic WBC 3-5 (0-5) /HPF Ur Epithelial Cells None Seen (None Seen) /HPF Urine Bacteria None Seen (None Seen) /HPF Urine Culture Reflexed NO (NO) Urine Opiates Level NEGATIVE (NEGATIVE) Ur Methadone NEGATIVE (NEGATIVE) Urine Barbiturates NEGATIVE (NEGATIVE) Ur Phencyclidine (PCP) NEGATIVE (NEGATIVE) Urine Amphetamine NEGATIVE (NEGATIVE) U Benzodiazepine Level NEGATIVE (NEGATIVE) Urine Cocaine NEGATIVE (NEGATIVE) Urine Marijuana (THC) NEGATIVE (NEGATIVE) Ethyl Alcohol (0-10) mg/dL 11/16/24 11/16/24 11/16/24 Range/Units 04:52 04:52 04:52 WBC 5.5 (4.23-9.07) x10^3/uL RBC 5.03 (4.63-6.08) x10^6/uL Hgb 15.0 (13.7-17.5) g/dL Hct 43.4 (40.1-51.0) % MCV 86.3 (79.0-92.2) fL MCH 29.8 (25.7-32.2) pg MCHC 34.6 (32.3-36.5) g/dL RDW 11.9 (11.6-14.4) % Plt Count 171 (163-337) x10^3/uL MPV 10.7 (9.4-12.4) fL Gran % (34.0-67.9) % Immature Gran % (Auto) (0.001-0.429) % Nucleat RBC Rel Count (0.00-0.2) % Eos # (Auto) (0.04-0.54) x10^3/uL Immature Gran # (Auto) (0.001-0.031) x10^3u/L Absolute Lymphs (auto) (1.32-3.57) x10^3/uL Absolute Monos (auto) (0.30-0.82) x10^3/uL Absolute Nucleated RBC (0.00-0.012) x10^3u/L Lymphocytes % (21.8-53.1) % Monocytes % (5.3-12.2) % Eosinophils % (0.8-7.0) % Basophils % (0.2-1.2) % Absolute Granulocytes (1.78-5.38) x10^3/uL Basophils # (0.01-0.08) x10^3/uL Sodium 142 (135-145) mmol/L Potassium 3.7 (3.5-5.1) mmol/L Chloride 107 (98-107) mmol/L Carbon Dioxide 26 (22-30) mmol/L Anion Gap 12.7 (5-15) MEQ/L BUN 16 (9-20) mg/dL Creatinine 1.08 (0.66-1.25) mg/dL Estimated GFR 91.2 ML/MIN Glucose 111 H (74-106) mg/dL Calcium 8.7 (8.4-10.2) mg/dL Magnesium 2.1 (1.6-2.3) mg/dL Total Bilirubin 0.80 (0.2-1.3) mg/dL AST 26 (17-59) U/L ALT 20 (0-50) U/L Alkaline Phosphatase 45 (38-126) U/L Troponin I (0.000-0.033) ng/mL Serum Total Protein 6.7 (6.3-8.2) g/dL Albumin 4.1 (3.5-5.0) g/dL TSH 3rd Generation 2.205 (0.470-4.680) mIU/L Urine Color (Yellow) Urine Appearance (Clear) Urine pH (4.6-8.0) Ur Specific Pepin (1.005-1.030) Urine Protein (Negative) Urine Glucose (UA) (Negative) mg/dL Urine Ketones (Negative) Urine Blood (Negative) Urine Nitrite (Negative) Urine Bilirubin (Negative) Urine Urobilinogen (0.2) mg/dL Ur Leukocyte Esterase (Negative) U Hyaline Cast (Auto) (0-2) /LPF Urine Microscopic RBC (0-5) /HPF Urine Microscopic WBC (0-5) /HPF Ur Epithelial Cells (None Seen) /HPF Urine Bacteria (None Seen) /HPF Urine Culture Reflexed (NO) Urine Opiates Level (NEGATIVE) Ur Methadone (NEGATIVE) Urine Barbiturates (NEGATIVE) Ur Phencyclidine (PCP) (NEGATIVE) Urine Amphetamine (NEGATIVE) U Benzodiazepine Level (NEGATIVE) Urine Cocaine (NEGATIVE) Urine Marijuana (THC) (NEGATIVE) Ethyl Alcohol (0-10) mg/dL - Radiology Exams Ordered Rad Exams-Entire Visit: Radiology Procedures Category Date Time Status CERVICAL SPINE WO CONTRAST [CT] Stat Exams 11/15/24 12:59 Completed ECHO W/2D AND DOPPLER [US] Routine Exams 11/16/24 08:00 Ordered HEAD WITHOUT CONTRAST [CT] Stat Exams 11/15/24 12:59 Completed - Procedures and Test Procedures and Tests throughout Hospitalization: Therapy Orders & Screens 11/15/24 16:48 RT Miscellaneous Order ROUTINE Comment: Physician Instructions: Reason For Exam: Cpap at [facility] Diagnosis: Syncope and collapse 11/15/24 17:33 Respiratory Therapy Consult ONCE Comment: Reason For Exam: Diagnosis: Syncope and collapse Discharge Exam General Appearance: no apparent distress, alert Neurologic Exam: alert, oriented x 3, cooperative, normal mood/affect, nml cerebellar function, sensation nml, No motor deficits Eye Exam: PERRL, EOMI, eyes nml inspection Ears, Nose, Throat Exam: normal ENT inspection, pharynx normal, moist mucous membranes Neck Exam: normal inspection, non-tender, supple, full range of motion Respiratory Exam: normal breath sounds, lungs clear, No respiratory distress Cardiovascular Exam: regular rate/rhythm, normal heart sounds Gastrointestinal/Abdomen Exam: soft, No tenderness, No mass Male Genitalia Exam: deferred Rectal Exam: deferred Back Exam: normal inspection, normal range of motion, No CVA tenderness, No vertebral tenderness Extremity Exam: normal inspection, normal range of motion Skin Exam: normal color, warm, dry, laceration (behind left ear) Final Diagnosis/Problem List - Final Discharge Diagnosis/Problem (1) Syncope and collapse Current Visit: Yes Status: Acute Code(s): R55 - SYNCOPE AND COLLAPSE (2) Laceration Current Visit: Yes Status: Acute Code(s): [id number] - (3) Gluteal pain Current Visit: Yes Status: Acute Code(s): M79.18 - [place]AL[place]IA, OTHER SITE (4) Sleep apnea Current Visit: Yes Status: Chronic Assessment & Plan: (1) Syncope and collapse Current Visit: Yes Status: Acute Assessment & Plan: - CT head negative for acute concern - Impression: Cervical lordotic reversal favored to be positional. Stable C5-C6 fusion. Negative acute fracture/subluxation. - Tele - CBC, CMP reviewed - Echo tomorrow - Trend trops x3 - IVF - Posible vasovagal epidode. - TSH, Mg + in AM 11/16 - Mg+, TSH - non-concerning - Trops x3 negative - Walking in room and doing jumping jacks w/o concerns today. - After Echo may d/c today- will need OP f/u for results of Echo Code(s): R55 - SYNCOPE AND COLLAPSE (2) Laceration Current Visit: Yes Status: Acute Assessment & Plan: - 3 cm laceration behind his left ear after fall in radiology today. - ICE PRN - Tylenol PRN - + stitches- will need OP f/u for removal Code(s): GSR4166 - (3) Gluteal pain Current Visit: Yes Status: Acute Assessment & Plan: - Left side - post fall - Tylenol PRN - ICE pack PRN Code(s): M79.18 - [place], OTHER SITE (4) Sleep apnea Current Visit: Yes Status: Chronic Assessment & Plan: - RT for cpap set up. Code(s): G47.30 - SLEEP APNEA, UNSPECIFIED - Discharge Discharge Date: 11/16/24 Disposition: Home, Self-Care Condition: Stable Prescriptions: Continue Multivitamin [Flintstones with Extra C] 1 tab PO DAILY Collagen/Biotin/Ascorbic Acid [Collagen 1500 Plus C Capsule] 1 tab PO DAILY Follow up with: NANDA DIA NP [Primary Care Provider] - 11/23/24 9:00 am
[2024-11-16] MEDS ORDERED: [UNRECOGNIZED DRUG - OTHER] PO SCH (10:00)
[2024-11-16] MEDS ORDERED: BIOTIN PO SCH (10:00)
[2024-11-16] MEDS ORDERED: ASCORBIC ACID PO SCH (10:00)
[2024-11-16] MEDS ORDERED: COLLAGEN PO SCH (10:00)
[2024-11-16] MEDS: THERAGRAN MULTIVITAMIN PO SCH (10:02)
== END 2024-11-16 11:30 | disposition home or self-care (01) ==
LOC: ED 12:51 → MED SURG 15:55
PROVIDERS: ADMIT Internal Medicine; ATTEND Internal Medicine
DX: R55 Syncope and collapse (principal); S01.01XA Laceration without foreign body of scalp, initial encounter; W19.XXXA Unspecified fall, initial encounter; G47.33 Obstructive sleep apnea (adult) (pediatric); M79.18 Myalgia, other site
CPT/HCPCS: 12002; 36415; 70450; 72125; 80053; 80307; 81001; 82077; 83735; 84443; 84484; 85025; 85027; 90471; 93005; 93041; 93268; 93306; 94760; 99285; G0378; Q3014; 90715; A9270-GY